=== PATIENT | male | born 1950 | race African-American/Black ===

== ENCOUNTER 2017-06-13 23:24 | Emergency (ER) | payer BC, OTHER ==
[2017-06-14 00:36] VITALS: BP 148/84; PULSE 77; TEMP 97.4; BMI 36.2
--- NOTE | 2017-06-14 01:32 | PDOC ---
History of Present Illness <Dudley Davis - Last Filed: 06/14/17 01:27> - General History Source: Patient Exam Limitations: No Limitations - History of Present Illness Initial Comments: 06/14/17 01:46 Patient is a 67 year old male with a significant past medical history of HTN, High cholesterol who presents to the ED with complaints of left eye redness that began tonight at 10:30pm. Patient reports waking from sleep when he noticed his eye was irritated and swollen and discovered it to be bleeding. He reports experiencing no blurred vision, double vision, or vision loss secondary to left eye redness. Patient states he is currently on no blood thinners. Denies chest pain, SOB. Denies nausea, vomiting. Denies fever, chills. Denies contact with sick individual, out of state travel. Denies any other symptoms. Allergies: None Social history: Lives with . Former smoker (last 18 years). No alcohol. No illicit drugs. Surgical history: None PMD: Dr. Brendon Cabello. <Andrew White - Last Filed: 06/14/17 01:47> - General Chief Complaint: Eye Problem Stated Complaint: EYE PAIN Time Seen by Provider: 06/14/17 01:07 Past History - Past Medical History COPD: No - Immunization History Immunization Up to Date: Yes - Suicide/Smoking/Psychosocial Hx Smoking History: Former smoker Have you smoked in the past 12 months: No If you are a former smoker, when did you quit?: 18 years Information on smoking cessation initiated: No Hx Alcohol Use: No Drug/Substance Use Hx: No Substance Use Type: None <Dudley Davis - Last Filed: 06/14/17 01:27> <Andrew White - Last Filed: 06/14/17 01:47> - Past Medical History Allergies/Adverse Reactions: Allergies Allergy/AdvReac Type Severity Reaction Status Date / Time No Known Allergies Allergy Verified 06/14/17 00:13 Home Medications: Ambulatory Orders Amlodipine Besylate 10 mg PO DAILY 06/14/17 Atorvastatin Ca [Lipitor] 20 mg PO DAILY 06/14/17 Review of Systems - Review of Systems Constitutional: No: Chills, Fever HEENTM: No: Recent change in vision, Double Vision ABD/GI: No: Nausea, Vomiting Neurological: No: Headache <Dudley Davis - Last Filed: 06/14/17 01:27> *Physical Exam - Vital Signs Last Vital Signs Temp Pulse Resp BP Pulse Ox 97.4 F L 77 20 148/84 97 06/14/17 00:13 06/14/17 00:13 06/14/17 00:13 06/14/17 00:13 06/14/17 00:13 <Dudley Davis - Last Filed: 06/14/17 01:27> - Vital Signs Last Vital Signs Temp Pulse Resp BP Pulse Ox 97.4 F L 77 20 148/84 97 06/14/17 00:13 06/14/17 00:13 06/14/17 00:13 06/14/17 00:13 06/14/17 00:13 - Physical Exam Comments: 06/14/17 01:47 GENERAL: The patient is awake, alert, and fully oriented, in no acute distress. HEAD: Normal with no signs of trauma. EYES: +Subconjunctival hemorrhage. +Early chemosis along lateral aspect. Visual acuity normal. No involvement in front of the pupil. No periorbital swelling. No ecchymosis. Pupils equal, round and reactive to light, extraocular movements intact, sclera anicteric, ENT: Ears normal, nares patent, oropharynx clear without exudates. Moist mucous membranes. NECK: Normal range of motion, supple without lymphadenopathy, JVD, or masses. LUNGS: Breath sounds equal, clear to auscultation bilaterally. No wheeze/ crackles. HEART: Regular rate and rhythm, normal S1 and S2 without murmur or rub. ABDOMEN: Soft/nontender/nondistended. BS wnl. No guarding or rebound. No palpable masses. No hepatosplenomegaly. EXTREMITIES: Normal range of motion, no edema. No clubbing or cyanosis. No cords, erythema, or tenderness. NEUROLOGICAL: Cranial nerves II through XII grossly intact. Normal speech, normal gait. PSYCH: Normal mood, normal affect. SKIN: Warm, Dry, normal turgor, no rashes or lesions noted. <Andrew White - Last Filed: 06/14/17 01:47> Medical Decision Making - Medical Decision Making 06/14/17 01:27 A portion of this note was documented by scribe services under my direction. I have reviewed the details of the note, within reason, and agree with the documentation with the following case summary and management plan written by me. 67-year-old male with history of hypertension and high cholesterol presents for evaluation of atraumatic and painless left eye redness without vision changes. Patient incidentally noted blood around his left eye around 10:30 PM, does not recall injuring his eye though he does occasionally use a Q-tip to remove any eyelashes. No headache, no eye pain, no vision changes or loss of vision. Does not take blood thinners, has no other complaints. Vital signs within normal limits, blood pressure on my evaluation 132/74 Left subconjunctival hemorrhage with a small 2-3 mm area of ecchymosis laterally , involves the lateral and inferior aspect only. Pupils are equal round and reactive to light, extraocular movements are intact, visual acuity is normal. No periorbital swelling or ecchymosis. 67-year-old male with atraumatic left subconjunctival hemorrhage without visual impairments or evidence of any deeper orbit involvement. He is well-appearing, his vitals are normal. No evidence for glaucoma or retinal involvement or infectious process. No indication for further workup or treatment Patient reassured, understands return criteria <Dudley Davis - Last Filed: 06/14/17 01:27> *DC/Admit/Observation/Transfer <Dudley Davis - Last Filed: 06/14/17 01:27> - Attestations Scribe Attestion: 06/14/17 01:47 Documentation prepared by Andrew White, acting as medical laboratory assistant for Dudley Davis MD, /DO. <Andrew White - Last Filed: 06/14/17 01:47> Diagnosis at time of Disposition: Subconjunctival hemorrhage of left eye - Discharge Dispostion Disposition: HOME Condition at time of disposition: Good - Referrals Referrals: Brendon Cabello MD [Primary Care Provider] - Dewayne Troncoso MD [Staff Physician] - - Patient Instructions Printed Discharge Instructions: DI for Subconjunctival Hemorrhage Additional Instructions: Activity as tolerated. Stay hydrated. The bleeding around the eye is benign, it usually gets absorbed over the next few days. Continue your medications as previously prescribed by your physician. You should follow up with your primary doctor and/or an bridge crane operator as needed as soon as possible regarding today's emergency department visit. Return to the emergency department for any new or concerning symptoms, particularly worsening redness or swelling, vision changes or pain, headache, fevers or chills. - Post Discharge Activity
== END 2017-06-14 01:37 | disposition home or self-care (01) ==
LOC: JER 23:24
DX: H11.32 Conjunctival hemorrhage, left eye (principal)
CPT/HCPCS: 99281-25

== ENCOUNTER 2018-04-14 15:39 | Emergency (ER) | payer OTHER, BC ==
[2018-04-14] MEDS ORDERED: DIPHTH,PERTUSS(ACELL),TET 0.5 ML DISP.SYRIN IM ONE (15:57)
[2018-04-14 15:58] VITALS: BP 149/88; PULSE 90; TEMP 98.5; BMI 33.5
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
== END 2018-04-14 16:24 | disposition home or self-care (01) ==
LOC: JERFT 15:39
DX: S60.371A Other superficial bite of right thumb, initial encounter (principal); Y04.1XXA Assault by human bite, initial encounter; Y93.89 Activity, other specified; Y92.89 Other specified places as the place of occurrence of the external cause; Y99.8 Other external cause status; Y07.499 Other family member, perpetrator of maltreatment and neglect
CPT/HCPCS: 90715; 99281-25